=== PATIENT | female | born 1970 | race Caucasian/White ===

== ENCOUNTER 2018-01-30 08:18 | Day surgery (SDC) | payer OTHER ==
[~2018-01-30 08:18] MED LIST: ASA81 MG PO; GLIPIZIDE ER5 MG PO; HCTZ; LOSARTAN POTAS100 MG PO; METFORMIN HCL500 MG PO
[2018-01-30] MEDS ORDERED: DUI500 PO (11:59)
[2018-01-30] MEDS ORDERED: TRAM1TAB98 PO (11:59)
== END 2018-01-30 14:45 | disposition home or self-care (01) ==
LOC: CIR.AMB 08:18
DX: M23.321 Other meniscus derangements, posterior horn of medial meniscus, right knee (principal); M17.11 Unilateral primary osteoarthritis, right knee; M67.51 Plica syndrome, right knee